=== PATIENT | male | born 1975 | race African-American/Black ===

== ENCOUNTER 2022-03-10 06:16 | Emergency (ER) | payer BC ==
[~2022-03-10] VITALS: Ht 182.9 cm; Wt 127.0 kg
--- NOTE | 2022-03-10 06:25 | NUR ---
Dr. Hutchins at bedside for MSE.
[2022-03-10] MEDS ORDERED: FAMOTIDINE 20 MG TABLET PO ONE (06:30)
[2022-03-10] MEDS ORDERED: MAG HYDROX/AL HYDROX/SIMETH 30 ML LIQUID UDC PO ONE (06:30)
[2022-03-10] MEDS ORDERED: FAMO-144 PO (06:33)
[2022-03-10] MEDS ORDERED: FAMOTIDINE 20 MG TABLET ONE (06:35)
[2022-03-10] MEDS ORDERED: MAG HYDROX/AL HYDROX/SIMETH 30 ML LIQUID UDC ONE (06:36)
--- NOTE | 2022-03-10 06:41 | NUR ---
Xray at bedside.
[2022-03-10 06:46] LABS: HEMATOCRIT 40.1 % (36.7-47.1); MEAN CORPUSCULAR HEMOGLOBIN 30.6 uug (23.8-33.4); PLATELET COUNT (AUTO) 181 K/uL (152-348)
[2022-03-10 06:51] LABS: CREATININE 1.1 mg/dL (0.6-1.3); POTASSIUM 3.9 mmol/L (3.5-5.1)
[2022-03-10 06:57] LABS: BILIRUBIN,TOTAL 0.4 mg/dL (0.2-1.0); TOTAL PROTEIN, SERUM 7.8 g/dL (6.4-8.2)
[2022-03-10 07:21] VITALS: BP 125/80
--- NOTE | 2022-03-10 07:21 | NUR ---
Patient discharged to home in stable condition. Written and verbal after care instructions given. Patient verbalizes understanding of instructions. Stressed follow up or return to ER for worsening s/s. Patient out of ER with steady gait, no acute signs of distress, VSS, all belongings taken, provided with copies of lab results.
== END 2022-03-10 07:22 | disposition home or self-care (01) ==
LOC: ER 06:25
DX: R10.12 Left upper quadrant pain (principal)
CPT/HCPCS: 36415; 71045; 83690; 84484; 85025; 93005; A4663